=== PATIENT | female | born 1935 | race Caucasian/White ===

== ENCOUNTER 2017-02-26 14:19 | Inpatient (IN) | payer OTHER, BC ==
[~2017-02-26] VITALS: Ht 160 cm; Wt 52.9 kg
[~2017-02-26 14:19] MED LIST: AMITRIPTYLINE H10 MG PO; ARICEPT10 MG PO; MULTIVITAMIN1 EAC2 PO
[2017-02-26 17:10] VITALS: BP 129/69
[2017-02-26] MEDS ORDERED: KEFLEX500 MG PO (17:35)
[2017-02-26] MEDS ORDERED: DECADRON2 MG PO ×2 (17:40→18:20)
[2017-02-26] MEDS ORDERED: COLACE100 MG PO (17:40)
[2017-02-26] MEDS ORDERED: HEPARIN SO5000 UNIT4 SC (17:41)
[2017-02-26] MEDS ORDERED: NOVOLOG MI100 UNIT/2 SC (17:44)
[2017-02-26] MEDS ORDERED: ZOFRAN4 MG PO (18:07)
[2017-02-26] MEDS ORDERED: REGLAN10 MG PO (18:07)
[2017-02-26] MEDS ORDERED: ROXICODONE5 MG PO (18:08)
[2017-02-26] MEDS ORDERED: PANTOPRAZOLE SO40 MG PO (18:09)
[2017-02-26] MEDS ORDERED: MIRALAX17 GM PO (18:10)
[2017-02-26] MEDS ORDERED: SENOKOT,SENN1 TABLET PO (18:12)
[2017-02-26] MEDS ORDERED: DECADRON1 MG PO ×2 (18:16→18:17)
[2017-02-27 06:15] VITALS: BP 131/64
[2017-02-27 06:47] LABS: HEMATOCRIT 40.9 % (36.0-46.0); MCH 29.6 PG (29.0-34.0); MCHC 33.3 G/DL (30.0-36.0); MCV 89.1 FL (83-99); RBC DIS.WIDTH-CV 13.1 % (11.8-14.6); RBC DIS.WIDTH-SD 42.7 % (39-53); RED BLOOD COUNT 4.59 M/uL (3.80-5.20); WHITE BLOOD COUNT 11.7 K/uL (4.1-10.2)
[2017-02-27 07:30] LABS: ALKALINE PHOSPHATASE 58 IU/L (3-129); ANION GAP 8 MEQ/L (2-14); CHLORIDE 101 MEQ/L (99-109); GFR ESTIMATE (CALCULATED) > 59 mL/min/; GLUCOSE 93 mg/dL (70-99); POTASSIUM 4.8 MEQ/L (3.7-5.4); SAMPLE HEMOLYSIS CHECK 0; SAMPLE ICTERIC CHECK 0; SAMPLE LIPEMIA CHECK 0; SODIUM 136 MEQ/L (136-147); TOTAL BILIRUBIN 0.4 MG/DL (0.0-1.0); UREA NITROGEN (BUN) 20 mg/dL (9-23)
[2017-02-27 07:34] LABS: MEAN PLAT.VOLUME 11.5 uM^3 (9.5-12.4); PLAT.SUFFICIENCY ADEQUATE; PLATELET COUNT 197 K/uL (156-360)
[2017-02-27 11:43] LABS: POINT-OF-CARE METER ID UU14174215
[2017-02-27 13:18] LABS: POINT-OF-CARE METER ID UU14174215; POINT-OF-CARE USER ID ENVGAF
[2017-02-27 15:32] VITALS: BP 133/66
[2017-02-28 06:03] VITALS: BP 142/69
[2017-02-28 07:30] VITALS: BP 138/65
[2017-02-28 15:21] VITALS: BP 121/57
[2017-03-01 04:41] VITALS: BP 139/69
[2017-03-01 07:13] VITALS: BP 136/78
[2017-03-01 16:52] VITALS: BP 140/63
[2017-03-02 05:07] VITALS: BP 141/63
[2017-03-02 15:30] VITALS: BP 135/63
[2017-03-03 05:35] VITALS: BP 159/80
[2017-03-03 15:09] VITALS: BP 139/68
[2017-03-04 05:57] VITALS: BP 146/71
[2017-03-04 15:55] VITALS: BP 154/74
[2017-03-05 04:49] VITALS: BP 155/67
[2017-03-05 15:38] VITALS: BP 148/65
[2017-03-06 05:36] VITALS: BP 168/78
[2017-03-06 15:18] VITALS: BP 149/68
[2017-03-07 05:06] VITALS: BP 161/88
[2017-03-07 07:45] VITALS: BP 145/75
[2017-03-07] MEDS ORDERED: TYLENOL REGULA325 MG PO (12:34)
== END 2017-03-07 15:11 | DRG 945 ==
LOC: 3WEST 14:19 → ENPENDDIS 03-07 → 3WEST 03-07 08:04
PROVIDERS: Physical Medicine & Rehabilitation Pain Medicine
PROC: F07M0ZZ Range of Motion and Joint Mobility Treatment of Musculoskeletal System - Whole Body (ICD-10-PCS; principal; 2017-02-26)
DX: R53.1 Weakness (principal); R26.2 Difficulty in walking, not elsewhere classified; R20.0 Anesthesia of skin; Z87.891 Personal history of nicotine dependence; M21.371 Foot drop, right foot; N39.0 Urinary tract infection, site not specified; B96.20 Unspecified Escherichia coli [E. coli] as the cause of diseases classified elsewhere; M54.5 Low back pain; M51.36 Other intervertebral disc degeneration, lumbar region; M48.061 Spinal stenosis, lumbar region without neurogenic claudication; F03.90 Unspecified dementia, unspecified severity, without behavioral disturbance, psychotic disturbance, mood disturbance, and anxiety; R41.89 Other symptoms and signs involving cognitive functions and awareness; C85.90 Non-Hodgkin lymphoma, unspecified, unspecified site; N39.3 Stress incontinence (female) (male); G83.11 Monoplegia of lower limb affecting right dominant side; D49.7 Neoplasm of unspecified behavior of endocrine glands and other parts of nervous system
CPT/HCPCS: 70551; 80053; 82948; 85027; 87086; 97110 GO; 97112 GP; 97530 GP; J1644; J8540

== ENCOUNTER → 2017-03-25 | Outpatient (CLI) | payer OTHER, BC ==
[~2017-03-25] MED LIST changes: +COLACE100 MG PO; +DECADRON1 MG PO; +DECADRON2 MG PO; +HEPARIN SO5000 UNIT4 SC; +KEFLEX500 MG PO; +MIRALAX17 GM PO; +NOVOLOG MI100 UNIT/2 SC; +PANTOPRAZOLE SO40 MG PO; +REGLAN10 MG PO; +ROXICODONE5 MG PO; +SENOKOT,SENN1 TABLET PO; +TYLENOL REGULA325 MG PO; +ZOFRAN4 MG PO
== END ==
LOC: RAD 13:11
DX: S24.109A Unspecified injury at unspecified level of thoracic spinal cord, initial encounter (principal); G95.19 Other vascular myelopathies; R93.7 Abnormal findings on diagnostic imaging of other parts of musculoskeletal system
CPT/HCPCS: 72157; 72158

== ENCOUNTER → 2017-04-01 | Outpatient (CLI) | payer OTHER, BC | LOC: RAD 10:15 | DX: K76.0 Fatty (change of) liver, not elsewhere classified (principal); D25.9 Leiomyoma of uterus, unspecified; N28.1 Cyst of kidney, acquired; K76.89 Other specified diseases of liver | CPT/HCPCS: 74177 ==